=== PATIENT | female | born 1960 | race Caucasian/White ===

== ENCOUNTER 2018-11-23 12:02 | Outpatient (CLI) | payer BC ==
--- NOTE | 2018-11-23 14:05 | MMO ---
Bilateral MAMMO Bilat Screen [facility]. CLINICAL HISTORY: Patient is 58 years old and is seen for screening. The patient has the following family history of breast cancer: paternal aunt. The patient has no personal history of cancer. VIEWS: The views performed were: bilateral craniocaudal with tomosynthesis and bilateral mediolateral oblique with tomosynthesis. FILMS COMPARED: The present examination has been compared to prior imaging studies performed at [facility] on 11/17/2015, and at [facility] on 09/14/2007. MAMMOGRAM FINDINGS: The breasts are heterogeneously dense, which could obscure a lesion on mammography. There are no suspicious masses, suspicious calcifications, or new areas of architectural distortion. IMPRESSION: THERE IS NO MAMMOGRAPHIC EVIDENCE OF MALIGNANCY. A ROUTINE FOLLOW-UP MAMMOGRAM IN 1 YEAR IS RECOMMENDED. THE RESULTS OF THIS EXAM WERE SENT TO THE PATIENT. ACR BI-RADS Category 1 - Negative MAMMOGRAPHY NOTE: 1. A negative mammogram report should not delay a biopsy if a dominant of clinically suspicious mass is present. 2. Approximately 10% to 15% of breast cancers are not detected by mammography. 3. Adenosis and dense breasts may obscure an underlying neoplasm. Reported by: GABRIEL ALBERTS MD Electonically Signed: [id number]
== END 2018-11-23 12:03 | disposition home or self-care (01) ==
LOC: BICMAMMO 12:02
PROVIDERS: ATTEND Physician Assistant Medical
DX: Z12.31 Encounter for screening mammogram for malignant neoplasm of breast (principal); Z80.3 Family history of malignant neoplasm of breast
CPT/HCPCS: 77063; 77067

== ENCOUNTER 2018-11-27 08:27 | Outpatient (CLI) | payer BC ==
--- NOTE | 2018-11-27 08:51 | BD ---
EXAM: DEXA bone density examination HISTORY: 58-year-old postmenopausal female for screening COMPARISON: None FINDINGS: L1--bone mineral density 0.831 g/sq cm; T score -1.4 L2--bone mineral density 0.854 g/sq cm; T score -1.6 L3--bone mineral density 0.783 g/sq cm; T score -2.7 L4--bone mineral density 0.693 g/sq cm; T score -3.3 Total L1-L4--bone mineral density 0.787 g/sq cm; T score -2.4 Left femoral neck--bone mineral density0.544; T score -2.7 Total proximal left femur--bone mineral density 0.697; T score -2.0 IMPRESSION: Osteoporosis
== END 2018-11-27 08:28 | disposition home or self-care (01) ==
LOC: BICMAMMO 08:27
PROVIDERS: ATTEND Physician Assistant Medical
DX: Z13.820 Encounter for screening for osteoporosis (principal); M81.0 Age-related osteoporosis without current pathological fracture
CPT/HCPCS: 77080

== ENCOUNTER 2019-12-25 09:29 | Outpatient (CLI) | payer BC ==
--- NOTE | 2019-12-25 09:57 | BD ---
EXAM: Bone densitometry using DEXA HISTORY: 59 yo female. Screening for postmenopausal osteoporosis FINDINGS: L1--bone mineral density 0.929 g/sq cm; T score -0.6 ; Z score 0.5 L2--bone mineral density 0.912 g/sq cm; T score -1.1 ; Z score 0.1 L3--bone mineral density 0.863 g/sq cm; T score -2.0 ; Z score -0.8 L4--bone mineral density 0.716 g/sq cm; T score -2.1 ; Z score -1.9 Total L1-L4--bone mineral density 0.849 g/sq cm; T score -1.8 ; Z score -0.6 Left femoral neck--bone mineral density0.553; T score -2.7 ; Z score -1.5 Total proximal left femur--bone mineral density 0.807; T score -1.1 ; Z score -0.3 There has been an interval increase of 7.9% in the BMD of the lumbar spine and a increase of 15.8% in the BMD of the proximal femur since the previous study of 11/27/2018. IMPRESSION: Osteoporosis
== END 2019-12-25 09:30 | disposition home or self-care (01) ==
LOC: BICMAMMO 09:29
PROVIDERS: ATTEND Physician Assistant Medical
DX: Z13.820 Encounter for screening for osteoporosis (principal); M81.0 Age-related osteoporosis without current pathological fracture
CPT/HCPCS: 77080

== ENCOUNTER 2021-01-11 13:29 | Outpatient (CLI) | payer BC | END 2021-01-11 13:30 | disposition home or self-care (01) | LOC: BICMAMMO 13:29 | PROVIDERS: ATTEND Internal Medicine | DX: Z12.31 Encounter for screening mammogram for malignant neoplasm of breast (principal); Z80.3 Family history of malignant neoplasm of breast | CPT/HCPCS: 77063; 77067 ==

== ENCOUNTER 2021-03-16 10:28 | Outpatient (CLI) | payer BC | END 2021-03-16 10:29 | disposition home or self-care (01) | LOC: BICMAMMO 10:28 | PROVIDERS: ATTEND Internal Medicine Rheumatology | DX: M81.0 Age-related osteoporosis without current pathological fracture (principal) | CPT/HCPCS: 77080 ==

== ENCOUNTER 2021-04-14 08:03 | Outpatient (CLI) | payer BC ==
[2021-04-14] MEDS ORDERED: Iopamidol 370 76% 100 ML VIAL ONE (10:27)
[2021-04-14] MEDS ORDERED: Iopamidol 370 76% 50 ML VIAL FS ONE (10:27)
== END 2021-04-14 08:04 | disposition home or self-care (01) ==
LOC: CT 08:03
PROVIDERS: ATTEND Physician Assistant Medical
DX: R10.13 Epigastric pain (principal); R10.32 Left lower quadrant pain; R11.2 Nausea with vomiting, unspecified; R19.7 Diarrhea, unspecified; K83.8 Other specified diseases of biliary tract; K82.8 Other specified diseases of gallbladder
CPT/HCPCS: 74177; Q9967

== ENCOUNTER 2021-04-19 10:20 | Outpatient (CLI) | payer BC | END 2021-04-19 10:21 | disposition home or self-care (01) | LOC: ULT 10:20 | PROVIDERS: ATTEND Internal Medicine Gastroenterology | DX: R10.11 Right upper quadrant pain (principal); R11.2 Nausea with vomiting, unspecified; R93.3 Abnormal findings on diagnostic imaging of other parts of digestive tract; K80.20 Calculus of gallbladder without cholecystitis without obstruction; K83.8 Other specified diseases of biliary tract | CPT/HCPCS: 76705 ==

== ENCOUNTER 2021-04-26 15:07 | Outpatient (CLI) | payer BC ==
[2021-04-26 17:10] LABS: #Basophils 0.1 10x3/uL (0.0-0.2); #Eosinphils 0.1 10x3/uL (0.0-0.5); #Monocytes 0.5 10x3/uL (0.0-1.1); #Neutrophils 3.9 10x3/uL (1.5-8.4); %Basophils 0.8 % (0.0-2.0); %Lymphocytes 37.5 % (18.0-47.0); %Monocytes 6.3 % (0.0-10.0); %Neutrophils 54.1 % (40.0-75.0); Hemoglobin 12.9 g/dL (12.0-15.5); Mean Corpuscular HGB CONC 31.7 g/dL (32.0-36.0); Mean Corpuscular Hemoglobin 27.6 pg (27.0-33.0); Mean Platelet Volume 10.1 fl (7.4-10.4); Platelet Count 290 10x3/uL (150-450); RBC Distribution Width 13.6 % (11.5-14.5); Red Blood Cell (RBC) Count 4.68 10x6/uL (3.90-5.03); White Blood Cell (WBC) Count 7.2 10x3/uL (3.5-10.5)
[2021-04-26 17:43] LABS: ALT (SGPT) 10 U/L (8-55); AST (SGOT) 15 U/L (5-34); Albumin 4.5 g/dL (3.5-5.0); Alkaline Phosphatase 61 U/L (40-110); Anion Gap 14 mmol/L (10-20); BUN (Urea Nitrogen) 12 mg/dL (9.8-20.1); Bilirubin, Direct 0.4 mg/dL (0.1-0.3); Bilirubin, Total 1.5 mg/dL (0.2-1.2); Calc. Creatinine Clearance 0 mL/min (70-130); Calcium 9.8 mg/dL (7.8-10.44); Carbon Dioxide 29 mmol/L (22-29); Chloride 104 mmol/L (98-107); Glucose 88 mg/dL (70-105); Protein, Total 7.2 g/dL (6.0-8.3); Sodium 143 mmol/L (136-145)
[2021-04-27 07:28] LABS: SARS-CoV-2 PCR by NAA Not Detected (NotDetected)
== END 2021-04-26 15:08 | disposition home or self-care (01) ==
LOC: LABBT 15:07
PROVIDERS: ATTEND Surgery
DX: Z01.818 Encounter for other preprocedural examination (principal); Z20.822 Contact with and (suspected) exposure to COVID-19
CPT/HCPCS: 80048; 80076; 85025; 93005; 93010; U0003; U0005

== ENCOUNTER 2021-04-29 07:58 | Day surgery (SDC) | payer BC ==
[2021-04-26 10:10] VITALS: BMI 25.6
[2021-04-29] MEDS ORDERED: Bupivacaine 0.25% 10 ML VIAL ONE (10:01)
[2021-04-29] MEDS ORDERED: Fentanyl 100 MCG/2 ML VIAL ONE ×3 (10:04→12:10)
[2021-04-29] MEDS ORDERED: cefOXitin Sodium/Dextrose 2 GM/50 ML BAG ONE (10:21)
[2021-04-29] MEDS ORDERED: Iothalamate Meglumine 60% 50 ML VIAL FS ONE (10:24)
[2021-04-29] MEDS ORDERED: Lidocaine 1% PF 5 ML VIAL ONE (10:34)
[2021-04-29] MEDS ORDERED: Dexamethasone 20 MG/5 ML VIAL ONE (10:34)
[2021-04-29] MEDS ORDERED: PROPOFOL 200 MG/20 ML VIAL ONE (10:34)
[2021-04-29] MEDS ORDERED: Rocuronium Bromide 10 MG/ML (10ML VIAL) ONE (10:34)
[2021-04-29] MEDS ORDERED: SUGAMMADEX SODIUM 200 MG/2 ML VIAL ONE (11:07)
[2021-04-29] MEDS ORDERED: Meperidine HCl/PF 25 MG/ML VIAL ONE (11:51)
[2021-04-29] MEDS ORDERED: Ondansetron PF 4 MG/2 ML Vial ONE (13:13)
== END 2021-04-29 14:50 | disposition home or self-care (01) ==
LOC: SDC 07:58
PROVIDERS: ATTEND Surgery
PROC: 0FT44ZZ Resection of Gallbladder, Percutaneous Endoscopic Approach (ICD-10-PCS; principal; 2021-04-29)
PROC: BF121ZZ Fluoroscopy of Gallbladder using Low Osmolar Contrast (ICD-10-PCS; principal; 2021-04-29)
DX: K80.20 Calculus of gallbladder without cholecystitis without obstruction (principal); E03.9 Hypothyroidism, unspecified; E78.5 Hyperlipidemia, unspecified; G43.909 Migraine, unspecified, not intractable, without status migrainosus; K21.9 Gastro-esophageal reflux disease without esophagitis; I12.9 Hypertensive chronic kidney disease with stage 1 through stage 4 chronic kidney disease, or unspecified chronic kidney disease; N18.30 Chronic kidney disease, stage 3 unspecified; M19.049 Primary osteoarthritis, unspecified hand; M81.0 Age-related osteoporosis without current pathological fracture; Z79.899 Other long term (current) drug therapy; Z88.0 Allergy status to penicillin; Z88.1 Allergy status to other antibiotic agents; Z88.6 Allergy status to analgesic agent; Z88.8 Allergy status to other drugs, medicaments and biological substances; Z91.040 Latex allergy status
CPT/HCPCS: 47532; 88304; C1713; J0694; J1100; J2175; J2405; J2704; J3010; Q9961-U8; S0020

== ENCOUNTER 2024-01-31 10:53 | Outpatient (CLI) | payer OTHER | END 2024-01-31 10:54 | disposition home or self-care (01) | LOC: RAD 10:53 | PROVIDERS: ATTEND Internal Medicine Gastroenterology | DX: R13.10 Dysphagia, unspecified (principal); K21.9 Gastro-esophageal reflux disease without esophagitis | CPT/HCPCS: 74230 ==